=== PATIENT | female | born 1970 | race Caucasian/White ===

== ENCOUNTER → 2022-07-07 07:32 | Outpatient (CLI) | payer OTHER ==
[~2022-07-07 07:32] MED LIST: AMBIEN10 MG PO; CIPRO750 MG PO; Colace 100MG PO; KETO10TA2 PO; ORPH100T PO; PERCOCET 5/321 UDTAB PO
== END | disposition home or self-care (01) ==
LOC: LAB 07:32
PROVIDERS: ATTEND Internal Medicine
DX: M54.59 Other low back pain (principal); I10 Essential (primary) hypertension; Z01.810 Encounter for preprocedural cardiovascular examination; E03.9 Hypothyroidism, unspecified; E78.9 Disorder of lipoprotein metabolism, unspecified; E55.9 Vitamin D deficiency, unspecified; E66.8 Other obesity; G62.9 Polyneuropathy, unspecified; Z12.11 Encounter for screening for malignant neoplasm of colon; E78.5 Hyperlipidemia, unspecified

== ENCOUNTER 2022-07-11 09:19 | Outpatient (CLI) | payer OTHER | END 2022-07-11 09:24 | disposition home or self-care (01) | LOC: NUCLEAR 09:19 | DX: I20.9 Angina pectoris, unspecified (principal); R00.2 Palpitations; I10 Essential (primary) hypertension; G47.37 Central sleep apnea in conditions classified elsewhere ==

== ENCOUNTER → 2022-07-11 | Outpatient (CLI) | payer OTHER | END | disposition home or self-care (01) | LOC: LAB 08:58 | PROVIDERS: ATTEND Internal Medicine | DX: Z12.11 Encounter for screening for malignant neoplasm of colon (principal); I10 Essential (primary) hypertension; M54.59 Other low back pain; Z01.810 Encounter for preprocedural cardiovascular examination; E03.9 Hypothyroidism, unspecified; E78.9 Disorder of lipoprotein metabolism, unspecified; E55.9 Vitamin D deficiency, unspecified; E66.8 Other obesity; G62.9 Polyneuropathy, unspecified ==

== ENCOUNTER 2023-01-23 07:09 | Outpatient (CLI) | payer OTHER | END 2023-01-23 07:18 | disposition home or self-care (01) | LOC: LAB 07:09 | PROVIDERS: ATTEND Internal Medicine | DX: Z01.810 Encounter for preprocedural cardiovascular examination (principal); M54.59 Other low back pain; I10 Essential (primary) hypertension; E03.9 Hypothyroidism, unspecified; E78.9 Disorder of lipoprotein metabolism, unspecified; E55.9 Vitamin D deficiency, unspecified; E66.8 Other obesity; G62.9 Polyneuropathy, unspecified; Z12.11 Encounter for screening for malignant neoplasm of colon ==

== ENCOUNTER 2023-01-23 08:48 | Outpatient (CLI) | payer OTHER | END 2023-01-23 09:00 | disposition home or self-care (01) | LOC: MAMO-SONO 08:48 | PROVIDERS: ATTEND Emergency Medicine Pediatric Emergency Medicine | DX: Z12.31 Encounter for screening mammogram for malignant neoplasm of breast (principal); G62.9 Polyneuropathy, unspecified; E66.8 Other obesity; E55.9 Vitamin D deficiency, unspecified; E78.9 Disorder of lipoprotein metabolism, unspecified; E03.9 Hypothyroidism, unspecified; M54.59 Other low back pain; I10 Essential (primary) hypertension; Z01.810 Encounter for preprocedural cardiovascular examination ==

== ENCOUNTER 2023-01-25 07:05 | Outpatient (CLI) | payer OTHER | END 2023-01-25 07:23 | disposition home or self-care (01) | LOC: LAB 07:05 | DX: N39.0 Urinary tract infection, site not specified (principal) ==

== ENCOUNTER 2023-01-30 10:36 | Outpatient (CLI) | payer OTHER | END 2023-01-30 10:37 | disposition home or self-care (01) | LOC: LAB 10:36 | DX: D35.00 Benign neoplasm of unspecified adrenal gland (principal) ==

== ENCOUNTER → 2023-07-13 08:06 | Outpatient (CLI) | payer OTHER ==
[2023-07-13 08:55] LABS: HEMATOCRIT 40.2 % (36.0-45.00); MEAN CELL VOLUME 83.7 fL (80.00-100.00); MEAN CORPUSCULAR HEMOGLOBIN 29.1 pg (27.00-32.0); MEAN CORPUSCULAR HGB CONC 34.8 g/dl (32.0-36.0); PLATELET COUNT 263 K/uL (150-450); RED BLOOD COUNT 4.81 M/uL (4.00-6.00); RED CELL DISTRIBUTION WIDTH 13.2 % (11.5-14.5)
[2023-07-13 08:57] LABS: URINE APPEARANCE Clear; URINE BILIRRUBIN Negative (NEGATIVE); URINE BLOOD Negative; URINE COLOR Yellow; URINE GLUCOSE Negative (NEGATIVE); URINE LEUKOCYTE Negative; URINE NITRATE Negative; URINE PROTEIN Negative (NEGATIVE); URINE UROBILINOGEN 0.2 E.U./dl
[2023-07-13 08:58] LABS: URINE BACTERIA 2333.4 uL (0.0-1933); URINE EPITHELIAL CELLS 57.6 uL (0.0-38.8); URINE RBC 3.4 uL (0.0-20.8)
[2023-07-13 09:21] LABS: ALBUMIN 3.6 gm/dL (3.4-5.0); BILIRUBIN TOTAL 0.51 mg/dL (0.3-1.2); CALCIUM 9.6 mg/dL (8.5-10.1); CREATININE SERUM 0.88 mg/dL (0.55-1.02); GFR 67.22; GLOBULINA 3.9 G/DL (2.4-3.5); POTASSIUM 4.25 mEq/L (3.5-5.1); TOTAL PROTEIN 7.5 gm/dL (6.4-8.2)
[2023-07-13 09:22] LABS: CHOL HDL RATIO 4.6 (0-5.0)
== END | disposition home or self-care (01) ==
LOC: LAB 08:06
PROVIDERS: ATTEND Internal Medicine
DX: Z01.810 Encounter for preprocedural cardiovascular examination (principal); I10 Essential (primary) hypertension; E03.9 Hypothyroidism, unspecified; E78.9 Disorder of lipoprotein metabolism, unspecified; E55.9 Vitamin D deficiency, unspecified; E66.8 Other obesity; G62.9 Polyneuropathy, unspecified; E11.51 Type 2 diabetes mellitus with diabetic peripheral angiopathy without gangrene; N39.0 Urinary tract infection, site not specified

== ENCOUNTER 2024-08-13 10:26 | Outpatient (CLI) | payer OTHER | END 2024-08-13 10:32 | disposition home or self-care (01) | LOC: RAD 10:26 | DX: M54.2 Cervicalgia (principal); M54.50 Low back pain, unspecified ==

== ENCOUNTER 2024-08-19 08:35 | Outpatient (CLI) | payer OTHER | END 2024-08-19 08:36 | disposition home or self-care (01) | LOC: NUCLEAR 08:35 | DX: R09.89 Other specified symptoms and signs involving the circulatory and respiratory systems (principal); I10 Essential (primary) hypertension; E78.5 Hyperlipidemia, unspecified ==